=== PATIENT | male | born 1955 | race Caucasian/White ===

== ENCOUNTER → 2018-03-11 | Outpatient (CLI) | payer OTHER | LOC: HYPER 10:18 | DX: S81.802A Unspecified open wound, left lower leg, initial encounter (principal); T63.391A Toxic effect of venom of other spider, accidental (unintentional), initial encounter; E78.5 Hyperlipidemia, unspecified; Z87.891 Personal history of nicotine dependence; X58.XXXA Exposure to other specified factors, initial encounter; Y92.89 Other specified places as the place of occurrence of the external cause; Y93.89 Activity, other specified; Y99.8 Other external cause status ==

== ENCOUNTER → 2018-03-18 | Outpatient (CLI) | payer OTHER | LOC: HYPER 06:56 | DX: S81.802D Unspecified open wound, left lower leg, subsequent encounter (principal); T63.391D Toxic effect of venom of other spider, accidental (unintentional), subsequent encounter; E78.5 Hyperlipidemia, unspecified; Z87.891 Personal history of nicotine dependence; X58.XXXD Exposure to other specified factors, subsequent encounter ==